=== PATIENT | female | born 1975 | race Caucasian/White ===

== ENCOUNTER 2024-06-30 12:52 | Emergency (ER) | payer SELFPAY ==
[2024-06-30 12:59] VITALS: BP 135/82; PULSE 115; RESP 19; TEMP 36.6; O2SAT 98; BMI 32.9
--- NOTE | 2024-06-30 13:32 | EDNOTE_ITS ---
ED Medical Clearance RME/HPI General Chief complaint: Medical Clearance Stated complaint: CUSTODIAL CHECK Time Seen by Provider: 06/30/24 12:53 Arrival date/time: 06/30/24 12:52 RME / HPI RME / HPI Narrative: 38 year old female presented to the ER by [facility] for medical clearance. Per [employer], reported high blood pressure and possible high blood sugar. Patient additionally reports weakness beginning one month ago and she has seen her primary care for workup. No other associated symptoms or complaints reported. Patient mentioned she is on Ozempic for diabetes. Related Information Allergies Allergy/AdvReac Type Severity Reaction Status Date / Time codeine Allergy FEVER Verified 06/30/24 13:37 BLISTER Review of Systems Review of Systems Systems Reviewed: All systems reviewed, normal except as documented Narrative Review of Systems: Gen: No fever, no chills, no weight loss EYES: No discharge, no visual changes, no pain HEENT: No ear pain, no congestion, no sore throat PULM: No shortness of breath, no cough, no congestion CV: No chest pain, no dyspnea on exertion, no palpitations GI: No nausea, no vomiting, no diarrhea, no pain, no constipation : No frequency, no urgency, no dysuria Musc/skel: No joint pain, no back pain Skin: No rash Psyc: No hallucinations, no depression Heme/Lymph: No easy bleeding or bruising tendencies Neuro: +weakness, no headache Past Medical History Social History SMOKING STATUS: Never smoker ED Exam Narrative Physical exam: GENERAL APPEARANCE: alert and oriented x 4, well-developed, well-nourished, no acute distress HEENT: normocephalic, atraumatic NECK: supple LUNGS: no respiratory distress, normal effort HEART: good peripheral perfusion ABDOMEN: non distended EXTREMITIES: atraumatic NEUROLOGIC: awake; alert and oriented x4; cranial nerves II-XII grossly intact PSYCHIATRIC: appropriate mood and affect SKIN: warm, dry, normal color; no rashes Course Quality Measures none Vital Signs Vital signs: Vital Signs Temperature 97.8 F 06/30/24 12:59 Pulse Rate 115 H 06/30/24 12:59 Respiratory Rate 19 06/30/24 12:59 Blood Pressure 135/82 H 06/30/24 12:59 Pulse Oximetry (%) 98 06/30/24 12:59 Oxygen Delivery Method Oxy Mask 06/30/24 12:59 Pulse ox is 98% on room air which is adequate. Medical Clearance MDM Narrative MDM Narrative:: I, Anita Montoya, am scribing for and in the presence of Dr. Cabrera Patient data External records reviewed:: Other (specify) ([facility] ) Clinical information provided by:: patient and law enforcement Social determinants that could affect healthcare access:: none Patient has the following chronic illnesses:: diabetes How is presenting disease/condition affected by chronic disease/condition?: exacerbated by Evaluation data The following diagnostics were reviewed and interpreted by me:: other (specify) (no diagnostics ordered ) Lab and/or radiology exams considered but not ordered:: none Interpretation Summary: n/a Medications / Prescriptions Medications or Prescriptions considered but not ordered:: none Medication administrations:: see above (if any) Consultations Consultation(s) initiated? (list below): No Diagnosis Medical Clearance Differential Diagnosis: other (diabetes, hyperglycemia, medical clearance ) Most likely diagnosis given after review of the tests above:: medical clearance Admission Indicated Admission indicated?: not indicated Admission Request Was there a request for admission?: No Disposition Plan Disposition Plan: Discharge Discharge Attestation Discharge Attestation: The patient and all family members were given an opportunity to ask questions and understood the discharge instructions. Discharge instructions specifically effects, indications for sooner follow up or return to the emergency department, and the expected course of current diagnosis. Patient condition: Stable Discharge Plan Plan Patient Disposition: Group Home/Court/Law Disposition Comment: Okay to book Prescriptions/Referrals Referrals: Butch Avilez MD [Primary Care Provider] - In 1 week Problem List Clinical Impression: Medical clearance for incarceration Patient/Caregiver Discharge Instructions Print Language: Montenegrin
== END 2024-06-30 13:29 ==
PROVIDERS: Emergency Provider Emergency Medicine; PCP Family Medicine
DX: Z02.89 Encounter for other administrative examinations (principal); E11.9 Type 2 diabetes mellitus without complications
CPT/HCPCS: 99281

== ENCOUNTER 2024-06-30 13:33 | Emergency (ER) | payer SELFPAY ==
[2024-06-30 13:35] VITALS: BMI 25.2
[2024-06-30 14:02] VITALS: BP 113/80; PULSE 96; RESP 18; TEMP 36.7; O2SAT 98
--- NOTE | 2024-06-30 14:22 | PD.EDRME ---
Rapid Medical Screening Exam E Arrival date/time: 06/30/24 13:33 This is a 48-year-old female that reports that she was brought in by police in custody with complaints of weakness and near syncope. Patient states that she did not eat anything since yesterday. Patient has a history of gastric bypass. Patient reports that she ate an orange and feels better. Patient thinks that she just had anxiety and was just dehydrated when episode happened. Patient has no complaints at this time. Police release her from custody. I have greeted and performed a focused initial assessment of this patient. Initial appropriate labs ordered at this time. A comprehensive ED assessment and evaluation of the patient and analysis of all test and completion of medical decision making process will be conducted by additional ED provider. Chief Complaint: Weakness Time Seen by Provider: 06/30/24 13:40 Vital signs: Vital Signs Temperature 98.0 F 06/30/24 14:02 Pulse Rate 96 06/30/24 14:02 Respiratory Rate 18 06/30/24 14:02 Blood Pressure 113/80 06/30/24 14:02 Pulse Oximetry (%) 98 06/30/24 14:02 Oxygen Delivery Method Room Air 06/30/24 14:02
--- NOTE | 2024-06-30 14:23 | PC.NURSE ---
Pt was put into RME 1, vitaled, and was seen by provider. When I went to go get pt and move her to RME 5 she was no longer in RME 1. I did not see where pt went or if she left.
== END 2024-06-30 14:51 | disposition left against medical advice (07) ==
PROVIDERS: Emergency Provider Emergency Medicine
DX: R53.1 Weakness (principal); R55 Syncope and collapse; Z53.29 Procedure and treatment not carried out because of patient's decision for other reasons; Z98.84 Bariatric surgery status
CPT/HCPCS: 99281